=== PATIENT | female | born 1985 | race Two or more races ===

== ENCOUNTER 2021-12-18 14:10 | Emergency (ER) | payer SELFPAY ==
[~2021-12-18] VITALS: Ht 154.9 cm; Wt 63.0 kg
[2021-12-18] MEDS ORDERED: LIDO:MAALOX 1:1 20 ML SINGLE DOSE. SWSW ONE (15:00)
[2021-12-18] MEDS ORDERED: PANTOPRAZOLE IV PUSH 40 MG VIAL. IVP ONE (15:00)
[2021-12-18] MEDS ORDERED: IV NORMAL SALINE 1000ML BAG 1,000 ML IV SCH (15:00)
[2021-12-18 15:14] LABS: CALCIUM 8.7 mg/dL (8.5-10.1); GFR 63.5; POTASSIUM 3.6 mmol/L (3.5-5.1)
[2021-12-18 15:16] LABS: BASO % 0 % (0-3); EOS # 0.4 x10^3/uL (0.0-0.7); EOS % 5 % (0-3); HEMATOCRIT 38.5 % (36.0-47.0); HEMOGLOBIN 13.2 g/dL (12.0-15.5); LYMPH # 1.9 x10^3/uL (1.0-4.8); LYMPH % 27 % (24-48); MEAN CORPUSCULAR HEMOGLOBIN 32 pg (25-35); MEAN CORPUSCULAR HGB CONC 34 g/dL (31-37); MEAN CORPUSCULAR VOLUME 94 fL (79-100); MONO # 0.3 x10^3/uL (0.0-1.1); MONO % 5 % (0-9); NEUT # 4.3 x10^3/uL (1.8-7.7); NEUT % 62 % (31-73); PLATELET COUNT 256 x10^3/uL (140-400); RED CELL DISTRIBUTION WIDTH 13.7 % (11.5-14.5)
[2021-12-18 15:20] LABS: ALBUMIN 3.8 g/dL (3.4-5.0); TOTAL BILIRUBIN 0.3 mg/dL (0.2-1.0); TOTAL PROTEIN 7.7 g/dL (6.4-8.2)
[2021-12-18 15:32] LABS: PREG TEST PT QUAL NEGATIVE (NEG)
--- NOTE | 2021-12-18 15:59 | RAD ---
XR ABDOMEN 1V History: Abdominal pain. Comparison: None. Technique: AP supine portable supine radiograph the abdomen. Findings: Bowel gas pattern: Nonobstructive bowel gas pattern. Moderate colonic stool burden. Free air: No supine evidence of free air. Abnormal calcifications: None. Bones: No acute findings. Impression: 1. Nonobstructive bowel gas pattern with moderate colonic stool burden. Electronically signed by: Dell Sharp MD (12/18/2021 3:57 PM) [id number]
[2021-12-18 16:12] LABS: BACTERIA,URINE MOD /HPF (0-FEW); WBC,URINE OCC /HPF (0-4)
[2021-12-18] MEDS ORDERED: PANT40TA77 PO (16:27)
[2021-12-18 16:37] VITALS: BP 101/61
--- NOTE | 2021-12-18 16:57 | PHYS DOC ---
Past Medical History Past Medical History: GERD Past Surgical History: No Surgical History Smoking Status: Never Smoker Alcohol Use: None General Adult EDM: Chief Complaint: ABDOMINAL PAIN HPI: HPI: Patient is a 36 year old F who presents with epigastric pain and tenderness for several days. Patient states that she has a history of reflux as well as gastritis. She is taking omeprazole for this. She is also using MiraLAX occasionally for constipation. She states that she feels constipated at this moment. She has not had a good bowel movement in several days. Otherwise she is stable, vitals normal. She has no other complaints besides epigastric pain and tenderness and constipation. Review of Systems: Review of Systems: Constitutional: Denies fever or chills. [] Eyes: Denies change in visual acuity. [] HENT: Denies nasal congestion or sore throat. [] Respiratory: Denies cough or shortness of breath. [] Cardiovascular: Denies chest pain or edema. [] GI: Positive abdominal pain, no nausea, vomiting, bloody stools or diarrhea. [] : Denies dysuria. [] Musculoskeletal: Denies back pain or joint pain. [] Integument: Denies rash. [] Neurologic: Denies headache, focal weakness or sensory changes. [] Endocrine: Denies polyuria or polydipsia. [] Lymphatic: Denies swollen glands. [] Psychiatric: Denies depression or anxiety. [] Heart Score: C/O Chest Pain: No Risk Factors: Risk Factors: DM, Current or recent (<one month) smoker, HTN, HLP, family history of CAD, obesity. Risk Scores: Score 0 - 3: 2.5% MACE over next 6 weeks - Discharge Home Score 4 - 6: 20.3% MACE over next 6 weeks - Admit for Clinical Observation Score 7 - 10: 72.7% MACE over next 6 weeks - Early Invasive Strategies Current Medications: Current Medications Medications (Trade) Dose Ordered Sig/Toby Start Time Stop Time Status Last Admin Dose Admin Multi-Ingredient Mouthwash/Gargle (Gi Cocktail) 20 ml 1X ONCE 12/18/21 15:00 12/18/21 15:01 DC 12/18/21 15:00 20 ML Pantoprazole Sodium (PROTONIX VIAL for IV PUSH) 40 mg 1X ONCE 12/18/21 15:00 12/18/21 15:01 DC 12/18/21 15:00 40 MG Sodium Chloride 1,000 ml @ 1,000 mls/hr Q1H 12/18/21 15:00 12/18/21 15:59 DC 12/18/21 15:00 1,000 MLS/HR Allergies: Allergies: Allergies Coded Allergies Type Severity Reaction Last Updated Verified lactose Allergy Intermediate bloating 12/18/21 Yes Physical Exam: PE: Constitutional: Well developed, well nourished, no acute distress, non-toxic appearance. [] HENT: Normocephalic, atraumatic, bilateral external ears normal, oropharynx moist, no oral exudates, nose normal. [] Eyes: PERRLA, EOMI, conjunctiva normal, no discharge. [] Neck: Normal range of motion, no tenderness, supple, no stridor. [] Cardiovascular:Heart rate regular rhythm, no murmur [] Lungs & Thorax: Bilateral breath sounds clear to auscultation [] Abdomen: Bowel sounds normal, soft, no tenderness, no masses, no pulsatile masses. [] Skin: Warm, dry, no erythema, no rash. [] Back: No tenderness, no CVA tenderness. [] Extremities: No tenderness, no cyanosis, no clubbing, ROM intact, no edema. [] Neurologic: Alert and oriented X 3, normal motor function, normal sensory function, no focal deficits noted. [] Psychologic: Affect normal, judgement normal, mood normal. [] Current Patient Data: Labs: Laboratory Tests Test 12/18/21 14:38 12/18/21 14:42 Urine Collection Type Unknown Urine Color (Auto) Light yellow Urine Turbidity Clear Urine pH (Auto) 5.5 (<5.0-8.0) Urine Specific [place] 1.008 (1.000-1.030) Urine Protein (Auto) Negative mg/dL (Negative) Urine Glucose (Auto)(UA) Negative mg/dL (Negative) Urine Ketones (Auto) Negative mg/dL (Negative) Urine Blood (Auto) Trace (Negative) Urine Nitrite (Auto) Negative (Negative) Urine Bilirubin (Auto) Negative (Negative) Urine Urobilinogen (Auto) Normal mg/dL (Normal) Urine Leukocyte Esterase (Auto) Negative (Negative) Urine RBC 1-2 /HPF (0-2) Urine WBC Occ /HPF (0-4) Urine Squamous Epithelial Cells Mod /LPF Urine Bacteria Mod /HPF (0-FEW) White Blood Count 7.0 x10^3/uL (4.0-11.0) Red Blood Count 4.10 x10^6/uL (3.50-5.40) Hemoglobin 13.2 g/dL (12.0-15.5) Hematocrit 38.5 % (36.0-47.0) Mean Corpuscular Volume 94 fL (79-100) Mean Corpuscular Hemoglobin 32 pg (25-35) Mean Corpuscular Hemoglobin Concent 34 g/dL (31-37) Red Cell Distribution Width 13.7 % (11.5-14.5) Platelet Count 256 x10^3/uL (140-400) Neutrophils (%) (Auto) 62 % (31-73) Lymphocytes (%) (Auto) 27 % (24-48) Monocytes (%) (Auto) 5 % (0-9) Eosinophils (%) (Auto) 5 % (0-3) H Basophils (%) (Auto) 0 % (0-3) Neutrophils # (Auto) 4.3 x10^3/uL (1.8-7.7) Lymphocytes # (Auto) 1.9 x10^3/uL (1.0-4.8) Monocytes # (Auto) 0.3 x10^3/uL (0.0-1.1) Eosinophils # (Auto) 0.4 x10^3/uL (0.0-0.7) Basophils # (Auto) 0.0 x10^3/uL (0.0-0.2) Sodium Level 141 mmol/L (136-145) Potassium Level 3.6 mmol/L (3.5-5.1) Chloride Level 105 mmol/L (98-107) Carbon Dioxide Level 27 mmol/L (21-32) Anion Gap 9 (6-14) Blood Urea Nitrogen 11 mg/dL (7-20) Creatinine 1.0 mg/dL (0.6-1.0) Estimated GFR (Cockcroft-Gault) 63.5 BUN/Creatinine Ratio 11 (6-20) Glucose Level 96 mg/dL (70-99) Calcium Level 8.7 mg/dL (8.5-10.1) Total Bilirubin 0.3 mg/dL (0.2-1.0) Aspartate Amino Transferase (AST) 22 U/L (15-37) Alanine Aminotransferase (ALT) 31 U/L (14-59) Alkaline Phosphatase 60 U/L (46-116) Total Protein 7.7 g/dL (6.4-8.2) Albumin 3.8 g/dL (3.4-5.0) Albumin/Globulin Ratio 1.0 (1.0-1.7) Lipase 98 U/L (73-393) Serum Test, Qualitative Negative (NEG) Laboratory Tests 12/18/21 14:42 Laboratory Tests 12/18/21 14:42 Vital Signs: Vital Signs Date Time Temp Pulse Resp B/P (MAP) Pulse Ox O2 Delivery O2 Flow Rate FiO2 12/18/21 16:37 63 16 101/61 (74) 100 12/18/21 14:27 99.0 Room Air 99.0 Radiology/Procedures: Radiology/Procedures: Moderate stool present Impression: 36-year-old female with epigastric tenderness due to gastritis. Constipation also present. Course & Med Decision Making: Course & Med Decision Making Pertinent Labs and Imaging studies reviewed. (See chart for details) Patient was given Maalox for abdominal discomfort as well as IV Protonix and fluids. Patient responded well and recovered almost completely. Patient was asymptomatic after treatment. 36-year-old female with gastritis and constipation. Patient was advised to switch to Protonix. Patient had good response in the emergency department. Patient was given a prescription for Protonix as well as advised to continue taking MiraLAX likely 1 or 2 times per day. Patient is doing well currently and she will follow-up with her primary care physician in 2 weeks. All questions were answered, patient stable time of discharge. Patient comfortable with the plan. Patient acknowledged and was given ER precautions. Dragon Disclaimer: Dragotto Disclaimer: This electronic medical record was generated, in whole or in part, using a voice recognition dictation system. Departure Departure Impression: Primary Impression: Constipation Additional Impression: Gastritis and duodenitis Disposition: HOME / SELF CARE / HOMELESS Condition: GOOD Patient Instructions: Gastritis, Adult, [id number] Additional Instructions: Start taking Protonix twice a day Continue taking MiraLAX every day or twice a day You should probably follow-up with your primary care physician in 2 weeks Scripts Pantoprazole Sodium (PANTOPRAZOLE SODIUM ) 40 Mg Tablet. 40 MG PO BID AC for GERD for 14 Days, #28 TAB Prov: ANDRÉS BAXTER MD 12/18/21 ANDRÉS BAXTER MD Dec 18, 2021 16:57
== END 2021-12-18 16:38 | disposition home or self-care (01) ==
LOC: ER 14:10
DX: K29.70 Gastritis, unspecified, without bleeding (principal); K21.9 Gastro-esophageal reflux disease without esophagitis; K29.80 Duodenitis without bleeding; Z91.011 Allergy to milk products
CPT/HCPCS: 36415; 74018; 80053; 81001; 83690; 84703; 85025; 96361; 96374; 99284; C9113; J7030